=== PATIENT | female | born 1995 | race Two or more races ===

== ENCOUNTER 2019-09-29 11:47 | Outpatient (CLI) | payer OTHER | END 2019-09-29 11:56 | disposition home or self-care (01) | LOC: RAD 11:47 | PROVIDERS: ATTEND General Practice | DX: R05 Cough (principal) ==

== ENCOUNTER 2023-05-14 23:33 | Emergency (ER) | payer OTHER ==
[~2023-05-14] VITALS: Ht 172.7 cm; Wt 45.4 kg
[2023-05-15] MEDS ORDERED: DICLOFENAC POTA50 MG PO (02:05)
[2023-05-15] MEDS ORDERED: NORFLEX100MG PO (02:05)
[2023-05-15] MEDS ORDERED: MEDROLPACK PO (02:05)
== END 2023-05-15 02:44 | disposition home or self-care (01) ==
LOC: ER 23:34
DX: T14.90XA Injury, unspecified, initial encounter (principal); V49.9XXA Car occupant (driver) (passenger) injured in unspecified traffic accident, initial encounter; Y93.89 Activity, other specified; Y92.413 State road as the place of occurrence of the external cause; Y99.9 Unspecified external cause status; M54.2 Cervicalgia; M54.50 Low back pain, unspecified; M25.512 Pain in left shoulder